=== PATIENT | male | born 1965 ===

== ENCOUNTER 2022-05-19 22:24 | Emergency (ER) | payer OTHER ==
[~2022-05-19] VITALS: Ht 172.7 cm; Wt 81.6 kg
--- NOTE | 2022-05-19 22:30 | NUR ---
Patient is a/ox4, able to follow commands
[2022-05-19] MEDS ORDERED: METF-440 PO (22:49)
[2022-05-19] MEDS ORDERED: HEPA500034 SUBCUT (22:49)
[2022-05-19] MEDS ORDERED: LEVE1000 PO (22:49)
[2022-05-19] MEDS ORDERED: BISA10SU61 RC (22:49)
[2022-05-19] MEDS ORDERED: POLY17PO4 PO (22:49)
[2022-05-19] MEDS ORDERED: ACET-2154 PO (22:49)
[2022-05-19] MEDS ORDERED: DEXA4TAB PO ×2 (22:49)
[2022-05-19] MEDS ORDERED: DOCU-141 PO (22:49)
[2022-05-19] MEDS ORDERED: ALBU8.5H8 IH (22:49)
[2022-05-19] MEDS ORDERED: MAGN400O6 PO (22:49)
[2022-05-19] MEDS ORDERED: SENN-261 PO (22:49)
[2022-05-19] MEDS ORDERED: ATOR10TA PO (22:49)
[2022-05-19] MEDS ORDERED: FAMO-132 PO (22:49)
--- NOTE | 2022-05-19 23:34 | NUR ---
patient taken to CT
[2022-05-19 23:37] LABS: CARBON DIOXIDE 29 mmol/L (21-32); CHLORIDE 100 mmol/L (98-107); CREATININE 0.9 mg/dL (0.6-1.3); GLUCOSE 109 mg/dL (74-106); POTASSIUM 4.1 mmol/L (3.5-5.1); UREA NITROGEN, BLOOD 31 mg/dL (7-18)
[2022-05-19 23:46] LABS: ALANINE AMINOTRANSFERASE 85 U/L (16-63); ALKALINE PHOSPHATASE 70 U/L (50-136); ASPARTATE AMINOTRANSFERASE 29 U/L (15-37); BILIRUBIN,DIRECT 0.1 mg/dL (0.0-0.2); BILIRUBIN,TOTAL 0.5 mg/dL (0.2-1.0); TOTAL PROTEIN, SERUM 6.8 g/dL (6.4-8.2)
[2022-05-19 23:48] LABS: HEMATOCRIT 38.7 % (36.7-47.1); MEAN CORPUSCULAR VOLUME 95.1 fL (73.0-96.2); PLATELET COUNT (AUTO) 180 K/uL (152-348)
--- NOTE | 2022-05-19 23:53 | NUR ---
patient back from CT
[2022-05-20] MEDS ORDERED: IV NS 1000 ML 1,000 ML IV ONE ×2 (00:15)
[2022-05-20] MEDS ORDERED: PROCHLORPERAZINE EDISYLATE 10 MG/2 ML VIAL IV ONE (07:00)
[2022-05-20] MEDS ORDERED: PROCHLORPERAZINE EDISYLATE 10 MG/2 ML VIAL ONE (07:06)
[2022-05-20 07:36] LABS: *BILIRUBIN,URIN NEGATIVE (NEGATIVE); *BLOOD, URINE NEGATIVE (NEGATIVE); *CLARITY,URINE CLEAR (CLEAR); *COLOR,URINE YELLOW (YELLOW); *KETONES,URINE NEGATIVE (NEGATIVE); *UROBILINOGEN,URINE 0.2 E.U./dl (NORMAL); LEUKOCYTE ESTERASE ,URINE NEGATIVE (NEGATIVE); NITRITE, URINE NEGATIVE (NEGATIVE); UGLUCOSE NEGATIVE (NEGATIVE)
--- NOTE | 2022-05-20 07:56 | NUR ---
Patient is resting comfortably on gurney with eyes closed, easily arousable, pending transfer information from an accepting hospital with neurosurgery services, preferably [facility] per Dr Robert.
[2022-05-20 08:16] LABS: LYMPHOCYTES % (MANUAL) 15 % (20-40); MONOCYTES % (MANUAL) 6 % (2-10); NEUTROPHILS % (MANUAL) 79 % (42-75)
--- NOTE | 2022-05-20 08:37 | NUR ---
Patient's daughter Kay called ER and said that this patient was operated at [facility] and not [facility]. Dr Robert notified.
[2022-05-20] MEDS ORDERED: ONDANSETRON 4 MG/2 ML VIAL IV ONE ×2 (11:45→16:15)
[2022-05-20] MEDS ORDERED: HYDROMORPHONE 1 MG/1 ML DISP.SYRIN IV ONE ×3 (11:45→20:15)
[2022-05-20] MEDS ORDERED: ONDANSETRON 4 MG/2 ML VIAL ONE ×2 (11:49→16:07)
[2022-05-20] MEDS ORDERED: HYDROMORPHONE 1 MG/1 ML DISP.SYRIN ONE ×3 (11:49→20:08)
--- NOTE | 2022-05-20 12:47 | NUR ---
Patient's [email or web address], pending callback from [facility] neurosurgeon [email or web address]
--- NOTE | 2022-05-20 18:18 | NUR ---
Patient is eating dinner tray with good appetite, still waiting for neurosurgery acceptance
--- NOTE | 2022-05-20 18:49 | NUR ---
Patient is still waiting for neurosurgery acceptance. Patient ate dinner with good appetite, denies nausea or head pains at this time.
--- NOTE | 2022-05-20 19:19 | NUR ---
Nursing SBAR to 7pm nurse
--- NOTE | 2022-05-21 01:26 | NUR ---
Called [facility] transfer center, no beds available, will call.
--- NOTE | 2022-05-21 03:56 | NUR ---
Called [facility], spoke with Monica, waiting on financial clearance.
--- NOTE | 2022-05-21 07:40 | NUR ---
Recieved a call from [facility] for pt's transfer and spoke to so. [place] [facility] [place]TA for [facility] transfer is 0830.
[2022-05-21] MEDS ORDERED: ONDANSETRON 4 MG/2 ML VIAL ONE (07:45)
[2022-05-21] MEDS ORDERED: HYDROMORPHONE 1 MG/1 ML DISP.SYRIN IV ONE (07:45)
[2022-05-21] MEDS ORDERED: ONDANSETRON 4 MG/2 ML VIAL IV ONE (07:45)
[2022-05-21] MEDS ORDERED: HYDROMORPHONE 1 MG/1 ML DISP.SYRIN ONE (07:46)
--- NOTE | 2022-05-21 08:10 | NUR ---
Placed a call to ICU and report given Maicol MONGE.
--- NOTE | 2022-05-21 08:55 | NUR ---
Report given to transfering EMT and RN, Pt left Er via gurney, all belongings sent w/ Pt.
== END 2022-05-21 08:56 | disposition short-term general hospital (02) ==
LOC: ER 22:24
DX: I61.1 Nontraumatic intracerebral hemorrhage in hemisphere, cortical (principal); E78.5 Hyperlipidemia, unspecified; G93.6 Cerebral edema; D49.6 Neoplasm of unspecified behavior of brain; Z79.899 Other long term (current) drug therapy; R53.1 Weakness; Z20.822 Contact with and (suspected) exposure to COVID-19
CPT/HCPCS: 36415; 70450; 71045; 80048; 80076; 81003; 83605; 84484; 85007; 85025; 85730; 87426; 93005; 96361; 96374; 96375; 96376 ×2; 99285; J0780; J1170 ×5; J2405 ×3; J7040; 70030-TC; A4663